=== PATIENT | male | born 2000 | race Two or more races ===

== ENCOUNTER 2020-10-03 17:15 | Emergency (ER) | payer OTHER ==
[2020-10-03] MEDS ORDERED: Lidocaine 1% (PF) 30 ML VIAL ONE (18:40)
[2020-10-03] MEDS ORDERED: Boostrix 0.5 ML (Tdap) VIAL ONE (18:53)
== END 2020-10-03 19:30 | disposition home or self-care (01) ==
LOC: CSHERS 17:15
DX: S61.216A Laceration without foreign body of right little finger without damage to nail, initial encounter (principal); W26.8XXA Contact with other sharp object(s), not elsewhere classified, initial encounter
CPT/HCPCS: 12001; 90471; 90715; J2001